=== PATIENT | male | born 1995 | race Caucasian/White ===

== ENCOUNTER 2021-11-05 21:33 | Inpatient (IN) | payer SELFPAY ==
[~2021-11-05 21:33] MED LIST: Iopamidol-370 76% 500 ML 1 ML ONE
[2021-11-05 21:57] LABS: #Basophils 0.1 thou/uL (0.0-0.2); #Eosinphils 0.1 thou/uL (0.0-0.7); #Lymphocytes 2.5 thou/uL (1.20-3.40); #Monocytes 0.9 thou/uL (0.11-0.59); #Neutrophils 5.6 thou/uL (1.40-6.50); %Basophils 0.6 % (0.0-1.0); %Eosinophils 1.2 % (0.0-10.0); %Lymphocytes 27.4 % (21.0-51.0); %Monocytes 9.4 % (0.0-10.0); %Neutrophils 61.4 % (42.0-75.0); Mean Corpuscular HGB CONC 35.6 g/dL (32.0-36.0); Mean Corpuscular Hemoglobin 31.8 pg (27.0-31.0); Mean Corpuscular Volume 89.5 fL (78.0-98.0); Mean Platelet Volume 6.6 fL (7.4-10.4); Platelet Count 274 thou/uL (130-400); RBC Distribution Width 11.7 % (11.5-14.5); Red Blood Cell (RBC) Count 5.34 mill/uL (4.70-6.10); White Blood Cell (WBC) Count 9.1 thou/uL (4.8-10.8)
[2021-11-05 22:27] LABS: ALT (SGPT) 43 U/L (8-55); AST (SGOT) 20 U/L (5-34); Albumin 4.8 g/dL (3.5-5.0); Alkaline Phosphatase 92 U/L (40-110); Anion Gap 11 mmol/L (10-20); BUN (Urea Nitrogen) 11 mg/dL (8.9-20.6); Bilirubin, Total 0.7 mg/dL (0.2-1.2); Calc. Creatinine Clearance 0 mL/min (70-130); Calcium 9.9 mg/dL (7.8-10.44); Carbon Dioxide 27 mmol/L (22-29); Chloride 101 mmol/L (98-107); Globulin 3.2 g/dL (2.4-3.5); Glucose 94 mg/dL (70-105); Potassium 3.3 mmol/L (3.5-5.1); Sodium 136 mmol/L (136-145)
[2021-11-05 22:41] LABS: CKMB 2.4 ng/mL (0-6.6)
[2021-11-05] MEDS ORDERED: Nitroglycerin 0.4 MG TAB 1 EACH ONE (22:48)
[2021-11-05] MEDS ORDERED: Aspirin Chewable 81 MG TAB ONE (22:48)
[2021-11-05] MEDS ORDERED: Zolpidem Tartrate 5 MG TAB PO PRN (23:06)
[2021-11-05] MEDS ORDERED: Nitroglycerin 0.4 MG TAB (25 Tab Bottle) SL PRN (23:06)
[2021-11-05] MEDS ORDERED: Acetaminophen 325 MG TAB PO PRN (23:06)
[2021-11-05] MEDS ORDERED: Potassium Chloride 20 MEQ TAB PO SCH (23:15)
[2021-11-05] MEDS ORDERED: Nitroglycerin 0.2mg/Hour PATCH TD SCH (23:59)
[2021-11-06 00:48] VITALS: BMI 30.4
[2021-11-06 01:00] LABS: Amphetamine Not Detected (NotDetected); Barbiturates Screen Not Detected (NotDetected); Benzodiazepine Screen Not Detected (NotDetected); Cocaine Metabolite Screen Not Detected (NotDetected); Methadone Not Detected (NotDetected); Methamphetamine Not Detected (NotDetected); Opiate Screen Not Detected (NotDetected); Oxycodone Screen Not Detected (NotDetected); Phencyclidine (PCP) Not Detected (NotDetected); THC/Cannabinoid Screen Not Detected (NotDetected); Tricyclic Screen Not Detected (NotDetected)
[2021-11-06] MEDS ORDERED: Nitroglycerin 0.4 MG TAB 1 EACH ONE (01:21)
[2021-11-06 04:48] LABS: Anion Gap 12 mmol/L (10-20); BUN (Urea Nitrogen) 12 mg/dL (8.9-20.6); Calc. Creatinine Clearance 148 mL/min (70-130); Calcium 9.8 mg/dL (7.8-10.44); Carbon Dioxide 27 mmol/L (22-29); Chloride 104 mmol/L (98-107); Glucose 101 mg/dL (70-105); Potassium 3.9 mmol/L (3.5-5.1); Sodium 139 mmol/L (136-145)
[2021-11-06 04:51] LABS: Troponin I 0.045 ng/mL (< 0.028)
[2021-11-06] MEDS: Famotidine 20 MG TAB PO SCH ×2 (07:21→20:38)
[2021-11-06] MEDS: Aspirin Chewable 81 MG TAB PO SCH (07:21)
[2021-11-06 07:24] LABS: Troponin I 0.041 ng/mL (< 0.028)
[2021-11-06 07:26] LABS: Cardiac Risk 7.5 (Less than 4.5)
[2021-11-06] MEDS ORDERED: Enoxaparin Sodium 40 MG/0.4 ML SYRINGE SC SCH (09:00)
[2021-11-06] MEDS ORDERED: ADENOSINE 60 MG/20 ML VIAL ONE (09:13)
[2021-11-06 12:54] LABS: SARS-CoV-2 PCR by NAA Not Detected (NotDetected)
[2021-11-07] MEDS: Aspirin Chewable 81 MG TAB PO SCH (07:41)
[2021-11-07] MEDS: Famotidine 20 MG TAB PO SCH (07:41)
[2021-11-07 11:59] VITALS: BP 119/71; TEMP 97.6
[2021-11-07] MEDS ORDERED: Atorvastatin Calcium 40 MG TAB PO SCH (21:00)
== END 2021-11-07 14:31 | disposition home or self-care (01) | DRG 313 ==
LOC: ERS 21:33 → 2SW 23:09 → OBSVTOIN 11-06 16:55
PROVIDERS: ADMIT Internal Medicine; ATTEND Internal Medicine
DX: R07.89 Other chest pain (principal); R00.1 Bradycardia, unspecified; Z20.822 Contact with and (suspected) exposure to COVID-19; F17.210 Nicotine dependence, cigarettes, uncomplicated; Z60.2 Problems related to living alone; E66.9 Obesity, unspecified; Z68.30 Body mass index [BMI] 30.0-30.9, adult; Z88.0 Allergy status to penicillin; I25.2 Old myocardial infarction; Z90.89 Acquired absence of other organs; Z86.79 Personal history of other diseases of the circulatory system; Z90.49 Acquired absence of other specified parts of digestive tract
CPT/HCPCS: 36415; 71045; 71275; 78452; 80048; 80053; 80061; 80306; 82553; 84443; 84484; 85025; 93005; 93017; 93306; A9500; G0378; J0153; Q9967; U0003; U0005

== ENCOUNTER 2024-11-28 22:39 | Observation (INO) | payer BC, SELFPAY ==
[2024-11-28 23:33] LABS: #Basophils 0.07 10x3/uL (0.0-0.2); %Basophils 0.8 % (0.0-1.0); %Eosinophils 2.1 % (0.0-10.0); %Lymphocytes 33.2 % (21.0-51.0); %Neutrophils 55.7 % (42.0-75.0); Hemoglobin 16.6 g/dL (14.0-18.0); Mean Corpuscular HGB CONC 36.9 g/dL (32.0-36.0); Mean Corpuscular Hemoglobin 31.1 pg (27.0-31.0); Mean Corpuscular Volume 84.3 fL (78.0-98.0); Mean Platelet Volume 8.7 fL (7.4-10.4); Platelet Count 219 10x3/uL (130-400); RBC Distribution Width 12.3 % (11.5-14.5); Red Blood Cell (RBC) Count 5.34 mill/uL (4.70-6.10)
[2024-11-28 23:49] LABS: ALT (SGPT) 102 U/L (8-55); AST (SGOT) 35 U/L (5-34); Albumin 4.6 g/dL (3.5-5.0); Alkaline Phosphatase 87 U/L (40-110); Anion Gap 13 mmol/L (10-20); BUN (Urea Nitrogen) 11 mg/dL (8.9-20.6); Bilirubin, Total 0.5 mg/dL (0.2-1.2); Calc. Creatinine Clearance 0 mL/min (70-130); Calcium 9.6 mg/dL (7.8-10.44); Carbon Dioxide 23 mmol/L (22-29); Chloride 105 mmol/L (98-107); Estimated GFR 92; Globulin 3.2 g/dL (2.4-3.5); Glucose 106 mg/dL (70-105); Potassium 3.6 mmol/L (3.5-5.1); Protein, Total 7.8 g/dL (6.0-8.3); Sodium 137 mmol/L (136-145)
[2024-11-28 23:54] LABS: Troponin I 0.039 ng/mL (< 0.028)
[2024-11-29] MEDS ORDERED: Aspirin 81 mg Enteric Coated Tablet ONE (02:14)
[2024-11-29] MEDS ORDERED: Aspirin Chewable 81 MG TAB ONE (02:27)
[2024-11-29 02:32] LABS: Troponin I 0.036 ng/mL (< 0.028)
[2024-11-29] MEDS ORDERED: Enoxaparin 100 MG (1 mL) SYRINGE ONE (03:52)
[2024-11-29 05:56] LABS: Troponin I 0.038 ng/mL (< 0.028)
[2024-11-29 06:07] VITALS: BMI 30.3
[2024-11-29] MEDS ORDERED: Nitroglycerin 0.4 MG TAB (25 Tab Bottle) SL PRN (07:49)
[2024-11-29] MEDS ORDERED: Acetaminophen 325 MG TAB PO PRN (07:49)
[2024-11-29] MEDS ORDERED: Famotidine 20 MG TAB ONE (08:58)
[2024-11-29] MEDS: Famotidine 20 MG TAB PO SCH (09:03)
[2024-11-29 09:33] LABS: Troponin I 0.036 ng/mL (< 0.028)
[2024-11-29] MEDS ORDERED: Regadenoson 0.4 MG/5 ML SYRINGE ONE (09:46)
[2024-11-29 10:17] LABS: Cardiac Risk 7.6 (Less than 4.5)
[2024-11-29 10:49] VITALS: BP 131/82; TEMP 98.6
[2024-11-29] MEDS ORDERED: Enoxaparin 100 MG (1 mL) SYRINGE SC SCH (21:00)
[2024-11-29] MEDS ORDERED: Atorvastatin Calcium 40 MG TAB PO SCH (21:00)
[2024-11-30] MEDS ORDERED: Aspirin Chewable 81 MG TAB PO SCH (09:00)
== END 2024-11-29 14:21 | disposition home or self-care (01) ==
LOC: ERS 22:39 → ERHOLD 11-29 04:25
PROVIDERS: ADMIT Student in an Organized Health Care Education/Training Program; ATTEND Student in an Organized Health Care Education/Training Program
DX: R07.2 Precordial pain (principal); I21.4 Non-ST elevation (NSTEMI) myocardial infarction; I35.1 Nonrheumatic aortic (valve) insufficiency; Z90.49 Acquired absence of other specified parts of digestive tract; Z98.890 Other specified postprocedural states; F17.200 Nicotine dependence, unspecified, uncomplicated; Z79.82 Long term (current) use of aspirin; Z79.899 Other long term (current) drug therapy; Z88.0 Allergy status to penicillin
CPT/HCPCS: 36415; 71045; 78452; 80053; 80061; 84484; 85025; 93005; 93017; A9502; G0378; J1650; J2785